=== PATIENT | female | born 1970 | race Caucasian/White ===

== ENCOUNTER → 2019-03-13 | Outpatient (CLI) | payer OTHER, BC ==
[~2019-03-13] MED LIST: BARIUM for suspension 96% w/w (Vanilla Silq Medium Density) PO ONE; BARIUM for suspension 98% w/w (Vanilla Silq High Density) PO ONE
--- NOTE | 2019-03-13 11:51 | Diagnostic Imaging Report ---
INDICATION: Reflux. TECHNIQUE: Patient ingested effervescent crystals as well as thin and thick barium and imaging over the esophagus, stomach, and proximal small bowel was performed. Total of 1 minute and 5 seconds of fluoroscopic time was utilized. FINDINGS: Preliminary radiograph of the abdomen is unremarkable. The esophagus has a smooth contour. No mass or stricture is identified. No significant hiatal hernia or gastroesophageal reflux was demonstrated. Stomach has a normal configuration. There is prompt emptying into the small bowel. Duodenal bulb is without deformity. IMPRESSION: Unremarkable upper GI. Dictated by: Dictated on workstation # [id number]
== END ==
LOC: RAD 10:42
PROVIDERS: ATTEND Surgery
DX: K21.9 Gastro-esophageal reflux disease without esophagitis (principal)
CPT/HCPCS: 74246

== ENCOUNTER 2019-10-26 05:37 | Outpatient (CLI) | payer BC, OTHER ==
[~2019-10-26] VITALS: Ht 157 cm; Wt 100.9 kg
[2019-10-26] MEDS ORDERED: PEDI18TA2 PO (11:30)
[2019-10-26] MEDS ORDERED: BUPR150T9 PO (11:30)
[2019-10-26] MEDS ORDERED: PHEN-483 PO (11:30)
[2019-10-26] MEDS ORDERED: CETI10TA17 PO (11:31)
[2019-11-02] MEDS ORDERED: ONDN4T PO (12:57)
[2019-11-02] MEDS ORDERED: HYDR-3817 PO (12:57)
[2019-11-02] MEDS ORDERED: PANT40TA2 PO (12:57)
== END 2019-10-26 11:51 | disposition home or self-care (01) ==
LOC: PREOP 05:37
PROVIDERS: ATTEND Surgery
DX: Z01.818 Encounter for other preprocedural examination (principal)

== ENCOUNTER 2019-11-02 18:11 | Observation (INO) | payer BC, OTHER ==
[2019-11-02] VITALS (11 sets, daily range): BP systolic 124–166; BP diastolic 72–101
[~2019-11-02] VITALS: Ht 157 cm; Wt 100.9 kg
[2019-11-02] MEDS: LACTATED RINGERS 1,000 ML IV PRN ×2 (12:47→16:15)
--- NOTE | 2019-11-02 12:53 | Progress Note-Pre Operative ---
Pre-Operative Progress Note H&P Reviewed The H&P was reviewed, patient examined and no changes noted. Date Seen by Provider: Nov 02, 2019 Time Seen by Provider: 12:50 Date H&P Reviewed: Nov 02, 2019 Time H&P Reviewed: 12:50 Pre-Operative Diagnosis: morbid obesity, sleep apnea GIANNI FREEDMAN MD Nov 02, 2019 12:53
[2019-11-02 12:57] LABS: BASOPHILS % (AUTO) 0 % (0-10); EOSINOPHILS # (AUTO) 0.1 10^3/uL (0.0-0.3); EOSINOPHILS % (AUTO) 1 % (0-10); HEMATOCRIT 40 % (35-52); LYMPHOCYTES # (AUTO) 2.6 X 10^3 (1.0-4.0); LYMPHOCYTES % (AUTO) 33 % (12-44); MEAN CORPUSCULAR HEMOGLOBIN 30 PG (25-34); MEAN CORPUSCULAR HGB CONC 35 G/DL (32-36); MEAN CORPUSCULAR VOLUME 87 FL (80-99); MONOCYTES # (AUTO) 0.5 X 10^3 (0.0-1.0); MONOCYTES % (AUTO) 7 % (0-12); NEUTROPHILS # (AUTO) 4.7 X 10^3 (1.8-7.8); NEUTROPHILS % (AUTO) 59 % (42-75); PLATELET COUNT 254 10^3/uL (130-400); WHITE BLOOD COUNT 7.9 10^3/uL (4.3-11.0)
--- NOTE | 2019-11-02 12:58 | Discharge Inst-Surgical ---
D/C Lap Instructions-JASMINA Follow Up Appt in 2 weeks Activity as tolerated No driving for 24 hours No driving while on pain medications Incentive Spirometry use every 2 hours while awake Phase 1 clear liquid diet next 2 weeks. Symptoms to Report: Fever over 101 degree F, Nausea/Vomiting Infection Signs and Symptoms to report: Increased redness, Foul odor of wound, Increased drainage Bathing instructions: May shower Operative Area Clean/Dry; Keep incision clean/dry If any problems/questions: Contact your physician or go to Emergency Room GIANNI FREEDMAN MD Nov 02, 2019 12:58
--- NOTE | 2019-11-02 16:33 | Progress Note-Post Operative ---
Post-Operative Progess Note Surgeon (s)/Cardiovascular Lab Director (s) Surgeon GIANNI FREEDMAN MD Cardiovascular Lab Director: jesse kumar APRN Pre-Operative Diagnosis morbid obesity, sleep apnea Post-Operative Diagnosis same Procedure & Operative Findings Date of Procedure 11/02/19 Procedure Performed/Findings laparoscopic gastric sleeve resection. Anesthesia Type get Estimated Blood Loss Estimated blood loss (mL): minimal Specimens/Packing Specimens Removed stomach GIANNI FREEDMAN MD Nov 02, 2019 16:33
--- NOTE | 2019-11-02 17:10 | Diagnostic Imaging Report ---
INDICATION: Incorrect needle count. EXAMINATION: Abdomen, 11/02/2019. FINDINGS: Two views of the abdomen. There is no radiopaque foreign body within the visualized aspects of the abdomen. IMPRESSION: No radiopaque foreign body. Dictated by: Dictated on workstation # [id number]
[~2019-11-02 18:11] MED LIST changes: +1/2 NS W/KCL 20 MEQ/L 1,000 ML IV SCH; -BARIUM for suspension 96% w/w (Vanilla Silq Medium Density) PO ONE; -BARIUM for suspension 98% w/w (Vanilla Silq High Density) PO ONE; +BUP/EPI 0.25% 1:200,000 (MARCAINE) 30 ML VIAL ONE; +BUPR150T9 PO; +CATHETER FLUSH 10 ML SYR IV PRN; +CETI10TA17 PO; +CLINDAMYCIN 600 MG/50 ML IVPB 50 ML IV ONE; +FAMOTIDINE 20MG/2ML IV (PEPCID) IV ONE; +GLYCOPYRROLATE 0.2 MG/ML (ROBINUL) 2 ML VIAL ONE; +HYDR-3817 PO; +HYDROmorphone 2 MG/ML VIAL (DILAUDID) IV ONE; +HYDROmorphone 2 MG/ML VIAL (DILAUDID) ONE; +LIDOCAINE PF 2% 5 ML (XYLOCAINE) VIAL ONE; +METOCLOPRAMIDE INJ 10 MG/2 ML (REGLAN) IV PRN; +METOCLOPRAMIDE INJ 10 MG/2 ML (REGLAN) IVP SCH; +MIDAZOLAM 2 MG/2 ML (VERSED) VIAL ONE; +NALOXONE 0.4 MG/ML 1 ML (NARCAN) VIAL IV PRN; +NEOSTIGMINE 3 MG/3 ML VIAL ONE; +NS IV 1000 ML 1,000 ML IV SCH; +ONDANSETRON 4 MG/2 ML (SDV) Z0FRAN IV ONE; +ONDANSETRON 4 MG/2 ML (SDV) Z0FRAN IV PRN; +ONDANSETRON 4 MG/2 ML (SDV) Z0FRAN IVP PRN; +ONDANSETRON 4 MG/2 ML (SDV) Z0FRAN IVP SCH; +ONDANSETRON 4 MG/2 ML (SDV) Z0FRAN ONE; +ONDN4T PO; +PANT40TA2 PO; +PEDI18TA2 PO; +PHEN-483 PO; +ROCURONIUM 10 MG/ML 5 ML SYRINGE IV ONE; +RT-ALBUTEROL SULF 2.5 MG/3 ML PRE-MIX VIAL INH SCH; +RT-ALBUTEROL SULF 2.5 MG/3 ML PRE-MIX VIAL ONE; +SEVOFLURANE (ULTANE) 15 ML INHAL SOLN ONE; +ceFAZolin 2 GM IV Premixed 50 ML IV SCH; +diphenhydrAMINE 50 MG/ML INJ (BENADRYL) IV PRN; +diphenhydrAMINE 50 MG/ML INJ (BENADRYL) IVP PRN; +fentaNYL INJECTION 1,000 MCG in NS (IVPB) 80 ML IV SCH; +fentaNYL INJECTION 100 MCG/2 ML AMP ONE; +metroNIDAZOLE 500MG/100ML IVPB 100 ML IV SCH; +morphine INJ 10 MG/ML 1ML (SYR OR VIAL) IVP ONE; +morphine INJ 10 MG/ML 1ML (SYR OR VIAL) ONE; +oxyCODONE 5 MG/5 ML ORAL SOLN (roxiCODONE) 5 ML UDC PO PRN; +proPOfol 200 MG/20 ML (DIPRIVAN) VIAL IV ONE
[2019-11-02] MEDS: 1/2 NS W/KCL 20 MEQ/L 1,000 ML IV SCH (19:53)
[2019-11-02] MEDS: ENOXAPARIN 40 MG/0.4 ML (LOVENOX) SYR SC SCH (20:43)
[2019-11-02] MEDS ORDERED: ENOXAPARIN 30 MG/0.3 ML (LOVENOX) SYR SC SCH (21:00)
[2019-11-02] MEDS: RT-ALBUTEROL SULF 2.5 MG/3 ML PRE-MIX VIAL INH SCH (21:43)
[2019-11-02] MEDS: ONDANSETRON 4 MG/2 ML (SDV) Z0FRAN IVP SCH (23:17)
[2019-11-02] MEDS: METOCLOPRAMIDE INJ 10 MG/2 ML (REGLAN) IVP SCH (23:18)
[2019-11-03] VITALS: BP 159/92
[2019-11-03] MEDS: RT-ALBUTEROL SULF 2.5 MG/3 ML PRE-MIX VIAL INH SCH ×7 (02:43→22:44)
--- NOTE | 2019-11-03 03:10 | OPERATIVE REPORT ---
DATE OF SERVICE: 11/02/2019 ATTENDING PRIMARY CARE PHYSICIAN: Dr. Jesús Luna PREOPERATIVE DIAGNOSES: 1. Morbid obesity. 2. Sleep apnea. 3. Gastroesophageal reflux disease. POSTOPERATIVE DIAGNOSES: 1. Morbid obesity. 2. Sleep apnea. 3. Gastroesophageal reflux disease. PROCEDURE: Laparoscopic gastric sleeve resection. SURGEON: Gianni Freedman MD GREASER AND OILER: Hansel rBown APRN ANESTHESIA: General endotracheal. ESTIMATED BLOOD LOSS: Minimal. FINDINGS: Surgically absent gallbladder. No hiatal hernia. DISPOSITION: The patient tolerated the procedure well. INDICATIONS: The patient is a 49-year-old female with morbid obesity and in a surgical weight loss program for the gastric sleeve resection and meets the medical criteria for bariatric surgery. She began to gain the majority of her adult weight after her first child approximately 20 years ago. Since that time, she has tried numerous diet and exercise attempts with no success. She has tried diet programs including high protein, low carbohydrate diets, Atkins diet, Venus and ketogenic diet as well as low-caloric diet with some success; however, would regain the weight back. She has also tried diet, exercise regimens including running, walking, elliptical agency trainer, stationary bike, resistance weight training and has little success with this. She has also tried numerous rounds of phentermine and would lose weight; however, after stopping the medication would regain the weight back. Her medical comorbidities related to her obesity include obstructive sleep apnea, depression and gastroesophageal reflux disease. DESCRIPTION OF PROCEDURE: The patient was brought to the operating room, laid supine on the table. After adequate IV pain and sedative medications and general endotracheal intubation, the abdomen was prepped and draped in standard surgical fashion. A 0.5% Marcaine with epinephrine was then used to anesthetize the overlying skin in the left upper abdominal quadrant and a transverse skin incision made using a 15 blade. An 0 silk suture was applied to the medial aspect incision for retraction and a Veress needle inserted with a low opening pressure of 0 mmHg. The abdomen was then insufflated to 15 mmHg pressure. The Veress needle removed and a 5 mm XL trocar placed followed by a 5 mm 45-degree angle laparoscope visualizing the peritoneal cavity. A 4-quadrant abdominal exploration was performed. There was no liver steatosis, surgically absent gallbladder. No hiatal hernia. Under direct visualization, we then proceeded to place a supraumbilical 10 mm port after the skin and peritoneal lining were anesthetized using 0.5% Marcaine with epinephrine and a transverse skin incision made using a 15 blade. In a similar manner, a midabdominal right of midline 15 mm port as well as a right upper abdominal quadrant 5 mm port. The epigastric region was then anesthetized using 0.5% Marcaine and a transverse skin incision made using 11 blade. A tract was then created through the abdominal wall layers using a trocar to a 5 mm port and through this opening, a medium sized Nathansen liver retractor was placed and the left lobe of the liver retracted anteriorly and superiorly. The patient was then placed in steep reverse Trendelenburg position. We then measured 6 cm from the pylorus along the greater curvature and marked this area with a marking pen. The gastrocolic ligament next to the stomach was then opened entering the lesser sac using the Sonicision. We then proceeded with inferior dissection until we were approximately 2 cm below our marking using the Sonicision with visualization of good hemostasis. We then proceeded superiorly, taking down the short gastric vessels as well as the angle of His, connective tissue fibers and also identifying the left albina of the diaphragm. A ViSiGi 36-Macedonian tube was then placed into the stomach and directed into the pylorus under direct visualization. Using this as our staple line guide, we then proceeded with our gastric sleeve resection. We first started with a 45 mm polyglycolic acid black load approximately 2 cm below our marking. We then proceeded with 60 mm black load followed by two 60 mm purple loads leaving approximately 2 cm next to the gastroesophageal junction and completing our gastric sleeve resection. The staple line corners were then clipped with 5 mm clips. Tisseel fibrin glue was then placed onto the staple line and omentum placed onto the staple line. Before this, a leak test was performed and the pylorus was occluded and 30 mmHg of air were insufflated into the stomach with no leak identified. The stomach was removed through the 15 mm port site. The fascia and peritoneum to the 10 and 15 mm port site were then closed under direct visualization using a David-Liv device and 0 Vicryl suture. The abdomen was desufflated and the remaining ports removed. All skin incisions were closed using 4-0 Monocryl running subcuticular sutures. Wounds were then cleaned and covered with Dermabond. The patient tolerated the procedure well. We will admit her 23-hour observation and proceed with pain control with a VIDEO CONTROL OPERATOR pump. We will also proceed with DVT prophylaxis with early ambulation, calf SCDs as well as Lovenox injections. Tomorrow morning, we will start a phase 1 clear liquid diet and when she is tolerating 60 mL of clear liquid, had adequate pain control with oral pain medications, is ambulating well, we will discharge her home. She will be instructed to do no heavy lifting or exertion for the next two weeks as well. Job ID: [id number] DocumentID: [id number] Dictated Date: 11/02/2019 16:45:54 Pleater Date: 11/03/2019 03:09:37 Dictated By: GIANNI FREEDMAN MD MTDD
[2019-11-03] MEDS: 1/2 NS W/KCL 20 MEQ/L 1,000 ML IV SCH ×2 (03:28→11:30)
[2019-11-03] MEDS: ceFAZolin 2 GM IV Premixed 50 ML IV SCH ×2 (03:28→12:23)
[2019-11-03 04:00] VITALS: BP 142/85
[2019-11-03] MEDS: METOCLOPRAMIDE INJ 10 MG/2 ML (REGLAN) IVP SCH ×2 (04:39→12:23)
[2019-11-03] MEDS: metroNIDAZOLE 500MG/100ML IVPB 100 ML IV SCH ×2 (04:39→12:30)
[2019-11-03] MEDS: ONDANSETRON 4 MG/2 ML (SDV) Z0FRAN IVP SCH ×2 (04:39→11:20)
[2019-11-03 06:30] LABS: HEMOGLOBIN 14.4 G/DL (11.5-16.0); MEAN PLATELET VOLUME 11.3 FL (7.4-10.4); WHITE BLOOD COUNT 12.3 10^3/uL (4.3-11.0)
[2019-11-03 06:40] LABS: CHLORIDE 100 MMOL/L (98-107)
[2019-11-03 06:41] LABS: POTASSIUM 3.9 MMOL/L (3.6-5.0); SODIUM 131 MMOL/L (135-145)
[2019-11-03 06:42] LABS: GLUCOSE 133 MG/DL (70-105)
[2019-11-03 06:44] LABS: CARBON DIOXIDE 17 MMOL/L (21-32)
[2019-11-03 06:46] LABS: CREATININE SERUM 0.78 MG/DL (0.60-1.30); GFR ESTIMATED > 60
[2019-11-03 06:47] LABS: BUN/CREATININE RATIO 6
[2019-11-03 08:00] VITALS: BP 155/86
[2019-11-03] MEDS ORDERED: SENNA W/DOCUSATE (SENOKOT S) TABLET PO SCH (09:00)
[2019-11-03] MEDS: ENOXAPARIN 40 MG/0.4 ML (LOVENOX) SYR SC SCH ×2 (09:48→19:36)
[2019-11-03] MEDS: SENNA W/DOCUSATE (SENOKOT S) TABLET PO SCH (09:49)
[2019-11-03] MEDS: ONDANSETRON 4 MG/2 ML (SDV) Z0FRAN IVP PRN ×2 (09:49→17:38)
[2019-11-03 12:00] VITALS: BP 114/70
[2019-11-03] MEDS ORDERED: PROMETHAZINE INJ 25 MG/ML (PHENERGAN) AMP IVP PRN (12:15)
--- NOTE | 2019-11-03 12:59 | Progress Note ---
Subjective Date Seen by a Provider: Nov 03, 2019 Time Seen by a Provider: 12:00 Subjective/Events-last exam Patient lying in bed resting. Patient reports having abdominal pain especially in the epigastric region. She reports that she has tried some ice chips however continues to have nausea and vomiting and has not been able to tolerate much. Denies any fever or chills. Reports that she has been ambulating to the bathroom only. Objective Exam Vital Signs Date Time Temp Pulse Resp B/P (MAP) Pulse Ox O2 Delivery O2 Flow Rate FiO2 11/03/19 12:00 36.0 97 16 114/70 (85) 99 Room Air 11/03/19 09:00 99 Room Air 11/03/19 08:00 35.4 90 22 155/86 (109) 98 Room Air 11/03/19 07:00 18 11/03/19 04:00 37.0 85 18 142/85 (104) 99 Room Air 11/03/19 00:00 36.0 87 18 159/92 (114) 99 Room Air 11/02/19 21:43 95 Room Air 11/02/19 21:00 15 11/02/19 21:00 Room Air 11/02/19 20:00 36.5 101 20 153/96 (115) 99 Nasal Cannula 0.50 11/02/19 19:11 Room Air 11/02/19 18:46 36.6 93 18 160/101 (120) 94 Room Air 11/02/19 18:00 36.2 14 159/99 (119) 95 Room Air 11/02/19 18:00 Room Air 11/02/19 17:50 14 160/96 (117) 99 OxyMask 2 11/02/19 17:50 OxyMask 2 11/02/19 17:40 OxyMask 4 11/02/19 17:40 14 165/97 (119) 100 OxyMask 3 11/02/19 17:30 15 166/98 (120) 100 OxyMask 4 11/02/19 17:30 OxyMask 6 11/02/19 17:20 OxyMask 8 11/02/19 17:20 14 155/99 (117) 100 OxyMask 6 11/02/19 17:10 16 156/99 (118) 100 OxyMask 8 11/02/19 17:06 OxyMask 10 11/02/19 17:06 36.1 17 144/94 (111) 100 OxyMask 10 11/02/19 14:09 37.3 94 18 124/72 99 Room Air I & O 11/03/19 07:00 Intake Total 3250 ml Output Total 2850 ml Balance 400 ml Capillary Refill : Less Than 3 Seconds General Appearance: No Apparent Distress, WD/WN Neck: Normal Inspection, Supple Respiratory: Normal Breath Sounds, No Accessory Muscle Use, No Respiratory Distress Cardiovascular: Regular Rate, Rhythm, No Edema Gastrointestinal: normal bowel sounds, soft, tenderness Extremity: Normal Inspection, Normal Range of Motion Neurologic/Psychiatric: Alert, Oriented x3 Skin: Normal Color, Warm/Dry, Other (Lap abdominal incisions C/D/I) Results Lab Laboratory Tests 11/03/19 06:17: White Blood Count 12.3H, Red Blood Count 4.92, Hemoglobin 14.4, Hematocrit 42, Mean Corpuscular Volume 86, Mean Corpuscular Hemoglobin 29, Mean Corpuscular Hemoglobin Concent 34, Red Cell Distribution Width 12.5, Platelet Count 244, Mean Platelet Volume 11.3H, Sodium Level 131L, Potassium Level 3.9, Chloride Level 100, Carbon Dioxide Level 17L, Anion Gap 14, Blood Urea Nitrogen 5L, Creatinine 0.78, Estimat Glomerular Filtration Rate > 60, BUN/Creatinine Ratio 6, Glucose Level 133H, Calcium Level 9.0 Microbiology 11/02/19 MRSA Screen - Final, Complete MRSA not isolated Assessment/Plan Assessment/Plan Assess & Plan/Chief Complaint A 49 year old female with morbid obesity, sleep apnea, who is S/P laparoscopic gastric sleeve resection VSS Patient unable to tolerate liquids Will continue IV fluids, pain medication - preferably oral pain meds if can tolerate, and nausea medication - will add phenergan Encourage ambulation and IS Will continue to encourage clear liquids as tolerated Labs in AM Clinical Quality Measures DVT/VTE Risk/Contraindication: Risk Factor Score Per Nursin RFS Level Per Nursing on Admit: 2=Moderate RICHARD FORD PICK OUT HAND Nov 03, 2019 12:59
[2019-11-03] MEDS ORDERED: METOCLOPRAMIDE INJ 10 MG/2 ML (REGLAN) IVP PRN ×2 (13:00)
[2019-11-03] MEDS ORDERED: ONDANSETRON 4 MG/2 ML (SDV) Z0FRAN IVP PRN (13:00)
--- NOTE | 2019-11-03 13:44 | Anesthesia-General Post-Op ---
General Patient Condition Mental Status/LOC: Same as Preop Cardiovascular: Satisfactory Nausea/Vomiting: Absent Respiratory: Satisfactory Pain: Controlled Complications: Absent Post Op Complications Complications None Follow Up Care/Instructions Patient Instructions None needed. Anesthesia/Patient Condition Patient Condition Patient is doing well, no complaints, stable vital signs, no apparent adverse anesthesia problems. No complications reported per nursing. D/C home per [facility] Criteria: Yes MITUL HARO CRNA Nov 03, 2019 13:44
[2019-11-03 16:00] VITALS: BP 159/85
--- NOTE | 2019-11-03 17:25 | NUR ---
80mL of IV fentanyl wasted from CADD pump at this time. Witnessed by DAMASO Osuna.
[2019-11-03] MEDS ORDERED: PANTOPRAZOLE 40 MG (PROTONIX) VIAL IV ONE (19:30)
[2019-11-03] MEDS ORDERED: PANTOPRAZOLE 40 MG (PROTONIX) VIAL ONE (19:30)
--- NOTE | 2019-11-03 19:50 | NUR ---
PT. REQUESTING MEDICATION FOR HEART BURN JEAN PAUL NOTIFIED, NEW ORDERS RECEIVED: PROTONIX 40MG IV DAILY
[2019-11-03 20:00] VITALS: BP 159/90
[2019-11-04 00:12] VITALS: BP 150/88
[2019-11-04] MEDS: 1/2 NS W/KCL 20 MEQ/L 1,000 ML IV SCH ×3 (01:04→06:26)
[2019-11-04] MEDS: RT-ALBUTEROL SULF 2.5 MG/3 ML PRE-MIX VIAL INH SCH ×2 (02:10→07:28)
[2019-11-04 04:00] VITALS: BP 163/90
[2019-11-04 06:19] LABS: BASOPHILS % (AUTO) 0 % (0-10); EOSINOPHILS % (AUTO) 0 % (0-10); HEMATOCRIT 45 % (35-52); HEMOGLOBIN 16.1 G/DL (11.5-16.0); LYMPHOCYTES # (AUTO) 1.5 X 10^3 (1.0-4.0); LYMPHOCYTES % (AUTO) 11 % (12-44); MEAN CORPUSCULAR HEMOGLOBIN 30 PG (25-34); MEAN CORPUSCULAR HGB CONC 36 G/DL (32-36); MEAN CORPUSCULAR VOLUME 83 FL (80-99); MONOCYTES # (AUTO) 0.9 X 10^3 (0.0-1.0); MONOCYTES % (AUTO) 7 % (0-12); NEUTROPHILS # (AUTO) 11.3 X 10^3 (1.8-7.8); NEUTROPHILS % (AUTO) 82 % (42-75); PLATELET COUNT 242 10^3/uL (130-400); WHITE BLOOD COUNT 13.7 10^3/uL (4.3-11.0)
[2019-11-04 06:37] LABS: ALBUMIN 4.4 GM/DL (3.2-4.5); CHLORIDE 93 MMOL/L (98-107); POTASSIUM 3.6 MMOL/L (3.6-5.0); SODIUM 127 MMOL/L (135-145)
[2019-11-04 06:38] LABS: CALCIUM 9.5 MG/DL (8.5-10.1)
[2019-11-04 06:39] LABS: GLUCOSE 127 MG/DL (70-105); TOTAL PROTEIN 7.7 GM/DL (6.4-8.2)
[2019-11-04 06:41] LABS: BILIRUBIN,TOTAL 1.1 MG/DL (0.1-1.0); CARBON DIOXIDE 18 MMOL/L (21-32)
[2019-11-04 06:43] LABS: ALKALINE PHOSPHATASE 133 U/L (40-136); CREATININE SERUM 0.75 MG/DL (0.60-1.30); GFR ESTIMATED > 60
[2019-11-04 06:44] LABS: BUN/CREATININE RATIO 7
[2019-11-04 06:46] LABS: ALANINE AMINOTRANSFERASE 92 U/L (0-55)
[2019-11-04 08:00] VITALS: BP 143/88
--- NOTE | 2019-11-04 08:03 | Progress Note ---
Subjective Date Seen by a Provider: Nov 04, 2019 Time Seen by a Provider: 07:50 Subjective/Events-last exam Patient lying in bed resting. Reports doing much better today. Nausea and vomiting improved. Minimal abdominal discomfort. Tolerating liquids. Heartburn controlled with medication. Objective Exam Vital Signs Date Time Temp Pulse Resp B/P (MAP) Pulse Ox O2 Delivery O2 Flow Rate FiO2 11/04/19 04:00 36.6 104 18 163/90 (114) 99 Room Air 11/04/19 00:12 37.0 98 18 150/88 (108) 99 Room Air 11/03/19 21:44 Room Air 11/03/19 20:00 36.8 83 18 159/90 (113) 100 Room Air 11/03/19 16:00 36.0 82 18 159/85 (109) 99 Room Air 11/03/19 12:00 36.0 97 16 114/70 (85) 99 Room Air 11/03/19 09:00 99 Room Air 11/03/19 08:00 35.4 90 22 155/86 (109) 98 Room Air I & O 11/04/19 07:00 Intake Total 1360 ml Balance 1360 ml Capillary Refill : Less Than 3 Seconds General Appearance: No Apparent Distress, WD/WN Neck: Normal Inspection, Supple Respiratory: Normal Breath Sounds, No Accessory Muscle Use, No Respiratory Distress Cardiovascular: Regular Rate, Rhythm, No Edema Gastrointestinal: normal bowel sounds, soft, tenderness Extremity: Normal Inspection, Normal Range of Motion Neurologic/Psychiatric: Alert, Oriented x3 Skin: Normal Color, Warm/Dry, Other (Lap abdominal incisions C/D/I) Results Lab Laboratory Tests 11/04/19 05:26: White Blood Count 13.7H, Red Blood Count 5.42, Hemoglobin 16.1H, Hematocrit 45, Mean Corpuscular Volume 83, Mean Corpuscular Hemoglobin 30, Mean Corpuscular Hemoglobin Concent 36, Red Cell Distribution Width 12.8, Platelet Count 242, Mean Platelet Volume 12.0H, Neutrophils (%) (Auto) 82H, Lymphocytes (%) (Auto) 11L, Monocytes (%) (Auto) 7, Eosinophils (%) (Auto) 0, Basophils (%) (Auto) 0, Neutrophils # (Auto) 11.3H, Lymphocytes # (Auto) 1.5, Monocytes # (Auto) 0.9, Eosinophils # (Auto) 0.0, Basophils # (Auto) 0.0, Sodium Level 127L, Potassium Level 3.6, Chloride Level 93L, Carbon Dioxide Level 18L, Anion Gap 16H, Blood Urea Nitrogen 5L, Creatinine 0.75, Estimat Glomerular Filtration Rate > 60, BUN/Creatinine Ratio 7, Glucose Level 127H, Calcium Level 9.5, Corrected Calcium 9.2, Total Bilirubin 1.1H, Aspartate Amino Transf (AST/SGOT) 39H, Alanine Aminotransferase (ALT/SGPT) 92H, Alkaline Phosphatase 133, Total Protein 7.7, Albumin 4.4 Microbiology 11/02/19 MRSA Screen - Final, Complete MRSA not isolated Assessment/Plan Assessment/Plan Assess & Plan/Chief Complaint A 49 year old female with morbid obesity, sleep apnea, who is S/P laparoscopic gastric sleeve resection VSS Patient tolerating liquids now Pain, nausea, and vomiting much better than yesterday Encourage ambulation and IS Ok to DC home Clinical Quality Measures DVT/VTE Risk/Contraindication: Risk Factor Score Per Nursin RFS Level Per Nursing on Admit: 2=Moderate RICHARD FORD CRUSHER ASSEMBLER Nov 04, 2019 08:03
--- NOTE | 2019-11-04 08:25 | NUR ---
ZOFRAN 4MG IV FOR NAUSEA.
[2019-11-04] MEDS: SENNA W/DOCUSATE (SENOKOT S) TABLET PO SCH (08:28)
[2019-11-04] MEDS: ENOXAPARIN 40 MG/0.4 ML (LOVENOX) SYR SC SCH (08:28)
[2019-11-04] MEDS: ONDANSETRON 4 MG/2 ML (SDV) Z0FRAN IVP PRN (08:28)
[2019-11-04] MEDS ORDERED: PANTOPRAZOLE 40 MG (PROTONIX) VIAL IV SCH (09:00)
[2019-11-04] MEDS ORDERED: PHENERGAN (10:00)
--- NOTE | 2019-11-04 10:15 | NUR ---
RX AND INST AND VERBALIZED UNDERSTANDING. DC'D PER WC TO HOME.
== END 2019-11-04 10:15 | disposition home or self-care (01) ==
LOC: 4TH 18:11 → SDC 18:11 → 4TH 11-03 12:59
PROVIDERS: ADMIT Surgery; ATTEND Surgery
DX: E66.01 Morbid (severe) obesity due to excess calories (principal); K21.9 Gastro-esophageal reflux disease without esophagitis; I10 Essential (primary) hypertension; G47.33 Obstructive sleep apnea (adult) (pediatric); G43.909 Migraine, unspecified, not intractable, without status migrainosus; F32.9 Major depressive disorder, single episode, unspecified; G89.29 Other chronic pain; M54.9 Dorsalgia, unspecified; Z68.41 Body mass index [BMI] 40.0-44.9, adult; Z79.899 Other long term (current) drug therapy; Z88.0 Allergy status to penicillin; Z88.5 Allergy status to narcotic agent; Z88.7 Allergy status to serum and vaccine; Z88.1 Allergy status to other antibiotic agents; Z88.8 Allergy status to other drugs, medicaments and biological substances
CPT/HCPCS: 36415; 74018; 80048; 80053; 84703; 85025; 85027; 87081; 94640; 94664; 94760

== ENCOUNTER 2019-11-11 11:23 | Emergency (ER) | payer BC ==
[~2019-11-11] VITALS: Ht 157 cm; Wt 90.7 kg
[~2019-11-11 11:23] MED LIST changes: -1/2 NS W/KCL 20 MEQ/L 1,000 ML IV SCH; -BUP/EPI 0.25% 1:200,000 (MARCAINE) 30 ML VIAL ONE; -CATHETER FLUSH 10 ML SYR IV PRN; -CLINDAMYCIN 600 MG/50 ML IVPB 50 ML IV ONE; -FAMOTIDINE 20MG/2ML IV (PEPCID) IV ONE; -GLYCOPYRROLATE 0.2 MG/ML (ROBINUL) 2 ML VIAL ONE; -HYDROmorphone 2 MG/ML VIAL (DILAUDID) IV ONE; -HYDROmorphone 2 MG/ML VIAL (DILAUDID) ONE; -LIDOCAINE PF 2% 5 ML (XYLOCAINE) VIAL ONE; -METOCLOPRAMIDE INJ 10 MG/2 ML (REGLAN) IV PRN; -METOCLOPRAMIDE INJ 10 MG/2 ML (REGLAN) IVP SCH; -MIDAZOLAM 2 MG/2 ML (VERSED) VIAL ONE; -NALOXONE 0.4 MG/ML 1 ML (NARCAN) VIAL IV PRN; -NEOSTIGMINE 3 MG/3 ML VIAL ONE; -NS IV 1000 ML 1,000 ML IV SCH; -ONDANSETRON 4 MG/2 ML (SDV) Z0FRAN IV ONE; -ONDANSETRON 4 MG/2 ML (SDV) Z0FRAN IV PRN; -ONDANSETRON 4 MG/2 ML (SDV) Z0FRAN IVP PRN; -ONDANSETRON 4 MG/2 ML (SDV) Z0FRAN IVP SCH; -ONDANSETRON 4 MG/2 ML (SDV) Z0FRAN ONE; +PHENERGAN; -ROCURONIUM 10 MG/ML 5 ML SYRINGE IV ONE; -RT-ALBUTEROL SULF 2.5 MG/3 ML PRE-MIX VIAL INH SCH; -RT-ALBUTEROL SULF 2.5 MG/3 ML PRE-MIX VIAL ONE; -SEVOFLURANE (ULTANE) 15 ML INHAL SOLN ONE; -ceFAZolin 2 GM IV Premixed 50 ML IV SCH; -diphenhydrAMINE 50 MG/ML INJ (BENADRYL) IV PRN; -diphenhydrAMINE 50 MG/ML INJ (BENADRYL) IVP PRN; -fentaNYL INJECTION 1,000 MCG in NS (IVPB) 80 ML IV SCH; -fentaNYL INJECTION 100 MCG/2 ML AMP ONE; -metroNIDAZOLE 500MG/100ML IVPB 100 ML IV SCH; -morphine INJ 10 MG/ML 1ML (SYR OR VIAL) IVP ONE; -morphine INJ 10 MG/ML 1ML (SYR OR VIAL) ONE; -oxyCODONE 5 MG/5 ML ORAL SOLN (roxiCODONE) 5 ML UDC PO PRN; -proPOfol 200 MG/20 ML (DIPRIVAN) VIAL IV ONE
[2019-11-11 11:25] VITALS: BP 133/87
--- NOTE | 2019-11-11 11:49 | ED GI ---
General Chief Complaint: Abdominal/GI Problems Stated Complaint: BLACK STOOL Nursing Triage Note: ARRIVED VIA AMB TO ROOM 07 WITH COMPLAINTS OF X1 BLACK STOOL THIS AM. ALSO NOTICED STOME GREEN DRAINAGE UNDER AN INCISION SITE. GASTRIC SLEEVE BY JASMINA ON Oct. PT STATES SHE TAKES A FLINTSTONES IRON BID AND THIS WAS HER FIRST STOOL SINCE SURGERY. Sepsis Screen: No Definite Risk Source of Information: Patient Exam Limitations: No Limitations History of Present Illness Date Seen by Provider: Nov 11, 2019 Time Seen by Provider: 11:32 Initial Comments 49yo female with complaints of wound drainage to surgical site as well as black stool this morning. Patient had gastric sleeve surgery by Dr Welch on . Has not had a bowel movement since prior to surgery. She states she had her first bm around 7am today that was "black". No significantly associated abdominal pain, Although she does report mild right upper quadrant "sharp" discomfort as well as "growly" LLQ discomfort. She is also concerned for the right mid laparoscopy site with greenish drainage under the tissue adhesive bandage. no significant pain at this site. No other complaints of illness or injury. Timing/Duration: 4-6 Hours Severity/Quality: Mild Location: RUQ, LLQ Radiation: No Radiation Activities at Onset: None Associated Symptoms: Other (Black stool) Allergies and Home Medications Allergies Coded Allergies: Tetanus Vaccines and Toxoid (Verified Allergy, Severe, SEVERE SWELLING AT INJECTION SITE, 11/02/19) cyclobenzaprine (Verified Allergy, Severe, ANAPHYLAXIS , 11/02/19) erythromycin base (Verified Allergy, Severe, CHEST PAIN, 11/02/19) Home Medications Bupropion HCl 150 Mg Tablet.er, 150 MG PO BID, (Reported) Cetirizine HCl 10 Mg Tablet, 10 MG PO DAILY, (Reported) Hydrocodone/Acetaminophen 1 Each Tablet, 1 EACH PO Q4H Prescribed by: GIANNI WELCH on 11/02/19 1257 Ondansetron HCl 4 Mg Tab, 4 MG PO Q4H Prescribed by: GIANNI WELCH on 11/02/19 1257 Pantoprazole Sodium 40 Mg Tablet.dr, 40 MG PO DAILY Prescribed by: GIANNI WELCH on 11/02/19 1257 Pedi Mv No.79/Ferrous Fumarate 18 Mg Tab.chew, 18 MG PO DAILY, (Reported) [Phenergan] , 25 MG EVERY 4-6 HOURS DIRECTED ON RX Prescribed by: MARI SEGURA on 11/04/19 1000 Patient Home Medication List Home Medication List Reviewed: Yes Review of Systems Review of Systems Constitutional: no symptoms reported Respiratory: Cough (Occasional mild) Cardiovascular: No Symptoms Reported Gastrointestinal: Abdominal Pain (Mild), Constipated, Other (Black stool) Genitourinary: No Symptoms Reported Musculoskeletal: no symptoms reported Skin: other (Possible infection laparoscopic site) Past Zffytmk-Zlbfqf-Lpnvna Hx Patient Social History Alcohol Use: Denies Use Recreational Drug Use: No Smoking Status: Never a Smoker 2nd Hand Smoke Exposure: No Recent Foreign Travel: No Contact w/Someone Who Travel: No Recent Infectious Disease Expo: No Recent Hopitalizations: No Seasonal Allergies Seasonal Allergies: Yes Past Medical History Surgeries: Yes (CX X3) Section, Tonsillectomy Respiratory: Yes Sleep Apnea Currently Using CPAP: Yes Currently Using BIPAP: No Cardiac: No Neurological: Yes Headaches /Migraines Female Reproductive Disorders: Menstrual Problems Sexually Transmitted Disease: No HIV/AIDS: No Genitourinary: No Gastrointestinal: Yes Gastroesophageal Reflux, Chronic Constipation, Chronic Diarrhea Musculoskeletal: Yes (NECK) Arthritis, Chronic Back Pain Endocrine: No HEENT: Yes (GLASSES) Loss of Vision: Denies Hearing Impairment: Denies Cancer: No Psychosocial: Yes Depression Integumentary: No Blood Disorders: Yes (HX ANEMIA) Adverse Reaction/Blood Tranf: No (N/A) Family Medical History Diabetes mellitus 19 MOTHER FHx: COPD (chronic obstructive pulmonary disease) 19 MOTHER FHx: skin cancer 19 MOTHER Guillain-Snowflake syndrome G8 BROTHER Kidney disease 19 MOTHER Liver failure 19 MOTHER G8 BROTHER Physical Exam Vital Signs Vital Signs - First Documented 11/11/19 11:25 Temp 37.1 Pulse 100 Resp 16 B/P (MAP) 133/87 (102) Pulse Ox 98 O2 Delivery Room Air Capillary Refill : Less Than 3 Seconds Height/Weight/BMI Height: '" Weight: lbs. oz. kg; 36.00 BMI Method: General Appearance: WD/WN, no apparent distress HEENT: PERRL/EOMI Respiratory: chest non-tender, lungs clear, normal breath sounds, no respiratory distress, no accessory muscle use Cardiovascular: regular rate, rhythm Gastrointestinal: normal bowel sounds (Slightly hyperactive), soft, tenderness (Mild tenderness around surgical sites) Rectal: normal exam, normal rectal tone, heme negative stool Extremities: normal range of motion Neurologic/Psychiatric: alert, normal mood/affect, oriented x 3 Progress/Results/Core Measures Results/Orders My Orders Orders - PING RUDOLPH MD Fecal Occult Bedside (11/11/19 11:43) Vital Signs/I&O 11/11/19 11:25 Temp 37.1 Pulse 100 Resp 16 B/P (MAP) 133/87 (102) Pulse Ox 98 O2 Delivery Room Air Blood Pressure Mean: 102 Fecal Occult: Negative Progress Progress Note : Time: 11:47 Progress Note Patient seen and examined, 49-year-old female who presents to the emergency room with concern for black stool. Patient states that she has not had a bowel movement since her gastric sleeve surgery on November 01. She has been taken Flintstones vitamins with iron since her surgery 1 twice daily. Patient noted some significantly black stool around 7:00 this morning. Fecal occult bedside testing was negative for blood. Patient's wound was evaluated, nontender nonerythematous, scant amount of drainage underneath the tissue adhesive bandage. Patient advised to follow-up with her surgeon on Wednesday and return for any worsening symptoms she verbalized understanding is comfortable with plan of care Departure Impression Primary Impression: Wound drainage Additional Impression: Stool color black Disposition: 01 HOME, SELF-CARE Condition: Stable Departure-Patient Inst. Decision time for Depature: 11:47 Referrals: MIGUEL GONZALEZ DO (PCP) Primary Care Physician GIANNI WELCH MD Patient Instructions: Negative Pressure Wound Therapy Add. Discharge Instructions: Continue to take your medications as prescribed. Follow-up with Dr. WELCH as scheduled on November 16. If you note that the surgical wound becomes more red, has more drainage, becomes more tender or painful please return to the emergency room for reevaluation. You should also call Dr. WELCH's office on Wednesday for a follow-up regarding your wound care. All discharge instructions reviewed with patient and/or family. Voiced understanding. PING RUDOLPH MD Nov 11, 2019 11:49
== END 2019-11-11 11:51 | disposition home or self-care (01) ==
LOC: EDUNIT# 11:23 → ER 11:24
DX: T81.89XA Other complications of procedures, not elsewhere classified, initial encounter (principal); K92.1 Melena; K21.9 Gastro-esophageal reflux disease without esophagitis; F32.9 Major depressive disorder, single episode, unspecified; G89.29 Other chronic pain; M54.9 Dorsalgia, unspecified; Z80.8 Family history of malignant neoplasm of other organs or systems; Z83.3 Family history of diabetes mellitus; Z88.7 Allergy status to serum and vaccine; Z88.1 Allergy status to other antibiotic agents; Z88.8 Allergy status to other drugs, medicaments and biological substances; Z79.891 Long term (current) use of opiate analgesic
CPT/HCPCS: 82274

== ENCOUNTER 2019-12-06 00:40 | Emergency (ER) | payer BC ==
[~2019-12-06] VITALS: Ht 157.5 cm; Wt 88.5 kg
[2019-12-06] MEDS ORDERED: FAMOTIDINE 20MG/2ML IV (PEPCID) IVP ONE (01:15)
[2019-12-06] MEDS ORDERED: ONDANSETRON 4 MG/2 ML (SDV) Z0FRAN IVP ONE (01:15)
[2019-12-06 01:18] LABS: BILIRUBIN,URINE NEGATIVE (NEGATIVE); CLARITY,URINE CLOUDY; COLOR,URINE YELLOW; GLUCOSE, URINE (UA) NEGATIVE (NEGATIVE); KETONES,URINE 3+ (NEGATIVE); LEUKOCYTE ESTERASE ,URINE NEGATIVE (NEGATIVE); NITRITE,URINE NEGATIVE (NEGATIVE); PH,URINE 5.5 (5-9); PROTEIN,URINE NEGATIVE (NEGATIVE)
--- NOTE | 2019-12-06 01:27 | ED Abdominal Pain ---
General Chief Complaint: Abdominal/GI Problems Stated Complaint: NAUSEA,BACK & ABD PAIN,GASTRIC SLEEVE 11-02-19 Nursing Triage Note: Pt reports abdominal pain started at approx 2200 last night, states that she thought she needed to have BM, with no success, then went to bed. Pain became too much at 0000, came to ER. Pt does not know when last BM was, and had gastric sleeve surgery on 11/02/19 Sepsis Screen: No Definite Risk Source of Information: Patient Exam Limitations: No Limitations History of Present Illness Date Seen by Provider: Dec 06, 2019 Time Seen by Provider: 00:52 Initial Comments This 49-year-old woman presents to the emergency room with severe left sided abdominal pain since around 22:00 last night. Pain started gradual but quickly escalated. She has associated nausea and vomiting. She does not know when her last bowel movement was. She had a gastric sleeve surgery performed about 5 weeks ago. She denies any fever. She denies any changes to her urine. Allergies and Home Medications Allergies Coded Allergies: Tetanus Vaccines and Toxoid (Verified Allergy, Severe, SEVERE SWELLING AT INJECTION SITE, 11/02/19) cyclobenzaprine (Verified Allergy, Severe, ANAPHYLAXIS , 11/02/19) erythromycin base (Verified Allergy, Severe, CHEST PAIN, 11/02/19) Home Medications Bupropion HCl 150 Mg Tablet.er, 150 MG PO BID, (Reported) Cephalexin 500 Mg Capsule, 500 MG PO TID Prescribed by: CLARY ROMAN on 12/06/19414 Cetirizine HCl 10 Mg Tablet, 10 MG PO DAILY, (Reported) Hydrocodone/Acetaminophen 1 Each Tablet, 1 EACH PO Q4H Prescribed by: GIANNI FREEDMAN on 11/02/19 1257 Hydrocodone/Acetaminophen 1 Each Tablet, 1 EACH PO Q4H PRN for PAIN-BREAKTHROUGH Prescribed by: CLARY ROMAN on 12/06/19 041 Ondansetron 4 Mg Tab.rapdis, 4 MG SL Q4H PRN for NAUSEA/VOMITING Prescribed by: CLARY ROMAN on 12/06/19414 Ondansetron HCl 4 Mg Tab, 4 MG PO Q4H Prescribed by: GIANNI FREEDMAN on 11/02/19 1257 Pantoprazole Sodium 40 Mg Tablet.dr, 40 MG PO DAILY Prescribed by: GIANNI FREEDMAN on 11/02/19 1257 Pedi Mv No.79/Ferrous Fumarate 18 Mg Tab.chew, 18 MG PO DAILY, (Reported) [Phenergan] , 25 MG EVERY 4-6 HOURS DIRECTED ON RX Prescribed by: MARI SEGURA on 11/04/19 1000 Patient Home Medication List Home Medication List Reviewed: Yes Review of Systems Review of Systems Constitutional: no symptoms reported EENTM: No Symptoms Reported Respiratory: No Symptoms Reported Cardiovascular: No Symptoms Reported Gastrointestinal: See HPI Genitourinary: No Symptoms Reported Musculoskeletal: no symptoms reported Skin: no symptoms reported Psychiatric/Neurological: No Symptoms Reported Endocrine: No Symptoms Reported Hematologic/Lymphatic: No Symptoms Reported Past Mbkajce-Qhwsbn-Pnntkg Hx Past Med/Social Hx: Reviewed Nursing Past Med/Soc Hx Patient Social History 2nd Hand Smoke Exposure: No Recent Foreign Travel: No Contact w/Someone Who Travel: No Recent Infectious Disease Expo: No Recent Hopitalizations: No Physical Abuse: No Sexual Abuse: No Mistreated: No Fear: No Seasonal Allergies Seasonal Allergies: Yes Past Medical History Surgeries: Yes (CX X3) Abdominal (Gastric sleeve), Section, Tonsillectomy Respiratory: Yes Sleep Apnea Currently Using CPAP: Yes Currently Using BIPAP: No Cardiac: No Neurological: Yes Headaches /Migraines : No Female Reproductive Disorders: Menstrual Problems Sexually Transmitted Disease: No HIV/AIDS: No Genitourinary: No Gastrointestinal: Yes Gastroesophageal Reflux, Chronic Constipation, Chronic Diarrhea Musculoskeletal: Yes (NECK) Arthritis, Chronic Back Pain Endocrine: No HEENT: Yes (GLASSES) Loss of Vision: Denies Hearing Impairment: Denies Cancer: No Psychosocial: Yes Depression Integumentary: No Blood Disorders: Yes (HX ANEMIA) Adverse Reaction/Blood Tranf: No (N/A) Family Medical History Diabetes mellitus 19 MOTHER FHx: COPD (chronic obstructive pulmonary disease) 19 MOTHER FHx: skin cancer 19 MOTHER Guillain-[place] syndrome G8 BROTHER Kidney disease 19 MOTHER Liver failure 19 MOTHER G8 BROTHER Physical Exam Vital Signs Vital Signs - First Documented 12/06/19 01:15 Temp 35.6 Pulse 93 Resp 28 B/P (MAP) 125/90 (102) Pulse Ox 100 O2 Delivery Room Air Capillary Refill : Less Than 3 Seconds Height/Weight/BMI Height: '" Weight: lbs. oz. kg; 35.00 BMI Method: General Appearance: WD/WN, moderate distress HEENT: PERRL/EOMI, normal ENT inspection Neck: normal inspection Respiratory: lungs clear, normal breath sounds, no respiratory distress, no accessory muscle use Cardiovascular: regular rate, rhythm, no edema, no murmur Gastrointestinal: normal bowel sounds, soft, tenderness (Throughout the left abdomen) Extremities: normal inspection, no pedal edema Neurologic/Psychiatric: opener tender II-XII nml as tested, no motor/sensory deficits, alert, normal mood/affect, oriented x 3 Skin: normal color, warm/dry Progress/Results/Core Measures Results/Orders Lab Results Laboratory Tests Test 12/06/19 01:11 12/06/19 01:20 Range/Units Urine Color YELLOW Urine Clarity CLOUDY Urine pH 5.5 5-9 Urine Specific [place] 1.025 H 1.016-1.022 Urine Protein NEGATIVE NEGATIVE Urine Glucose (UA) NEGATIVE NEGATIVE Urine Ketones 3+ H NEGATIVE Urine Nitrite NEGATIVE NEGATIVE Urine Bilirubin NEGATIVE NEGATIVE Urine Urobilinogen 0.2 < = 1.0 MG/DL Urine Leukocyte Esterase NEGATIVE NEGATIVE Urine RBC (Auto) 3+ H NEGATIVE Urine RBC 25-50 H /HPF Urine WBC 0-2 /HPF Urine Squamous Epithelial Cells 10-25 H /HPF Urine Crystals NONE /LPF Urine Bacteria TRACE /HPF Urine Casts NONE /LPF Urine Mucus SMALL H /LPF Urine Yeast FEW H /HPF Urine Culture Indicated YES White Blood Count 6.5 4.3-11.0 10^3/uL Red Blood Count 4.54 3.80-5.11 10^6/uL Hemoglobin 13.6 11.5-16.0 g/dL Hematocrit 41 35-52 % Mean Corpuscular Volume 89 80-99 fL Mean Corpuscular Hemoglobin 30 25-34 pg Mean Corpuscular Hemoglobin Concent 34 32-36 g/dL Red Cell Distribution Width 14.1 10.0-14.5 % Platelet Count 203 130-400 10^3/uL Mean Platelet Volume 11.8 9.0-12.2 fL Immature Granulocyte % (Auto) 0 % Neutrophils (%) (Auto) 43 42-75 % Lymphocytes (%) (Auto) 47 H 12-44 % Monocytes (%) (Auto) 8 0-12 % Eosinophils (%) (Auto) 1 0-10 % Basophils (%) (Auto) 1 0-10 % Neutrophils # (Auto) 2.8 1.8-7.8 10^3/uL Lymphocytes # (Auto) 3.0 1.0-4.0 10^3/uL Monocytes # (Auto) 0.5 0.0-1.0 10^3/uL Eosinophils # (Auto) 0.1 0.0-0.3 10^3/uL Basophils # (Auto) 0.0 0.0-0.1 10^3/uL Immature Granulocyte # (Auto) 0.0 0.0-0.1 10^3/uL Sodium Level 141 135-145 MMOL/L Potassium Level 3.1 L 3.6-5.0 MMOL/L Chloride Level 103 98-107 MMOL/L Carbon Dioxide Level 17 L 21-32 MMOL/L Anion Gap 21 H 5-14 MMOL/L Blood Urea Nitrogen 16 7-18 MG/DL Creatinine 0.84 0.60-1.30 MG/DL Estimat Glomerular Filtration Rate > 60 BUN/Creatinine Ratio 19 Glucose Level 127 H 70-105 MG/DL Calcium Level 9.4 8.5-10.1 MG/DL Corrected Calcium 9.4 8.5-10.1 MG/DL Magnesium Level 1.7 1.6-2.4 MG/DL Total Bilirubin 0.7 0.1-1.0 MG/DL Aspartate Amino Transf (AST/SGOT) 25 5-34 U/L Alanine Aminotransferase (ALT/SGPT) 40 0-55 U/L Alkaline Phosphatase 97 40-136 U/L Total Protein 6.8 6.4-8.2 GM/DL Albumin 4.0 3.2-4.5 GM/DL Lipase 125 H 8-78 U/L Serum Test, Qualitative NEGATIVE NEGATIVE My Orders Orders - CLARY HOLDER MD Cbc With Automated Diff (12/06/19 00:52) Comprehensive Metabolic Panel (12/06/19 00:52) Lipase (12/06/19 00:52) Magnesium (12/06/19 00:52) Ua Culture If Indicated (12/06/19 00:52) Ed Iv/Invasive Line Start (12/06/19 00:52) Ondansetron Injection (Zofran Injectio (12/06/19 01:15) Famotidine Injection (Pepcid Injection) (12/06/19 01:15) Fentanyl Injection (Sublimaze Injection (12/06/19 01:30) Hcg,Qualitative Serum (12/06/19 01:27) Urine Culture (12/06/19 01:11) Ct Abd/Pelvis Wo(Kidney Stone) (12/06/19 02:01) Morphine Injection (Morphine Injection (12/06/19 02:02) Ketorolac Injection (Toradol Injection) (12/06/19 03:15) Lactated Ringers (Lr 1000 Ml Iv Solution (12/06/19 03:07) Medications Given in ED Current Medications Medications Dose Ordered Sig/Ibrahima Route Start Time Stop Time Status Last Admin Dose Admin Famotidine 20 mg ONCE ONCE IVP 12/06/19 01:15 12/06/19 01:16 DC 12/06/19 01:22 20 MG Fentanyl Citrate 75 mcg ONCE ONCE IVP 12/06/19 01:30 12/06/19 01:31 DC 12/06/19 02:10 75 MCG Ketorolac Tromethamine 30 mg ONCE ONCE IVP 12/06/19 03:15 12/06/19 03:16 DC 12/06/19 03:23 30 MG Lactated Ringer's 1,000 ml @ 0 mls/hr Q0M ONCE IV 12/06/19 03:07 12/06/19 03:09 DC 12/06/19 03:22 1,000 MLS/HR Ondansetron HCl 8 mg ONCE ONCE IVP 12/06/19 01:15 12/06/19 01:16 DC 12/06/19 01:22 8 MG Vital Signs/I&O 12/06/19 12/06/19 01:15 04:45 Temp 35.6 35.6 Pulse 93 93 Resp 28 28 B/P (MAP) 125/90 (102) 125/90 (102) Pulse Ox 100 100 O2 Delivery Room Air Blood Pressure Mean: 102 Progress Progress Note : Progress Note Pain was treated with fentanyl. Zofran and Pepcid were given for GI symptoms. Urinalysis revealed hematuria. CT stone search was obtained and revealed a left distal ureteral stone. Toradol and IV fluids were administered. See discharge instructions. Diagnostic Imaging Diagonstic Imaging: CT Plain Films/CT/US/NM/MRI: abdomen, pelvis Comments CT abdomen and pelvis viewed by me and stat rad report reviewed. There is a left distal ureteral stone with obstruction. Departure Impression Primary Impression: Left ureteral stone Additional Impression: Nausea and vomiting Qualified Codes: R11.2 - Nausea with vomiting, unspecified Disposition: 01 HOME, SELF-CARE Condition: Improved Departure-Patient Inst. Decision time for Depature: 04:00 Referrals: MIGUEL GONZALEZ DO (PCP/Family) Primary Care Physician Patient Instructions: Kidney Stone Diet, Kidney Stones in Adults Add. Discharge Instructions: Drink plenty of clear liquids. Take ibuprofen up to 600 mg every 6 hours as needed for pain. Add hydrocodone for pain not controlled by ibuprofen. Take Zofran (ondansetron) as prescribed for nausea and vomiting. Strain your urine and bring any stones collected to your follow-up appointment. Follow-up with your primary care provider or a urologist of your choice as soon as possible. Dr. Gamez's contact information is listed below. Return to the emergency room if you have symptoms not improving or if you have worsening symptoms. All discharge instructions reviewed with patient and/or family. Voiced understanding. Scripts Cephalexin (Keflex) 500 Mg Capsule 500 MG PO TID, #20 CAP Prov: CLARY HOLDER MD 12/06/19 Ondansetron (Ondansetron Odt) 4 Mg Tab.rapdis 4 MG SL Q4H PRN for NAUSEA/VOMITING, #10 TAB Prov: CLARY HOLDER MD 12/06/19 Hydrocodone/Acetaminophen (Hydrocodone-Acetamin 5-325 mg) 1 Each Tablet 1 EACH PO Q4H PRN for PAIN-BREAKTHROUGH, #10 TAB Prov: CLARY HOLDER MD 12/06/19 CLARY HOLDER MD Dec 06, 2019 01:27
[2019-12-06 01:30] LABS: BASOPHILS % (AUTO) 1 % (0-10); EOSINOPHILS # (AUTO) 0.1 10^3/uL (0.0-0.3); EOSINOPHILS % (AUTO) 1 % (0-10); HEMATOCRIT 41 % (35-52); HEMOGLOBIN 13.6 g/dL (11.5-16.0); LYMPHOCYTES % (AUTO) 47 % (12-44); MEAN CORPUSCULAR HEMOGLOBIN 30 pg (25-34); MEAN CORPUSCULAR HGB CONC 34 g/dL (32-36); MEAN CORPUSCULAR VOLUME 89 fL (80-99); MEAN PLATELET VOLUME 11.8 fL (9.0-12.2); MONOCYTES # (AUTO) 0.5 10^3/uL (0.0-1.0); MONOCYTES % (AUTO) 8 % (0-12); NEUTROPHILS # (AUTO) 2.8 10^3/uL (1.8-7.8); NEUTROPHILS % (AUTO) 43 % (42-75); PLATELET COUNT 203 10^3/uL (130-400); WHITE BLOOD COUNT 6.5 10^3/uL (4.3-11.0)
[2019-12-06] MEDS ORDERED: fentaNYL INJECTION 100 MCG/2 ML AMP IVP ONE (01:30)
[2019-12-06 01:31] LABS: BACTERIA,URINE TRACE /HPF; RBC,URINE 25-50 /HPF; WBC,URINE 0-2 /HPF; YEAST,URINE FEW /HPF
[2019-12-06 01:44] LABS: CHLORIDE 103 MMOL/L (98-107); POTASSIUM 3.1 MMOL/L (3.6-5.0)
[2019-12-06 01:45] LABS: SODIUM 141 MMOL/L (135-145)
[2019-12-06 01:46] LABS: CALCIUM 9.4 MG/DL (8.5-10.1)
[2019-12-06 01:47] LABS: GLUCOSE 127 MG/DL (70-105); TOTAL PROTEIN 6.8 GM/DL (6.4-8.2)
[2019-12-06 01:48] LABS: CARBON DIOXIDE 17 MMOL/L (21-32)
[2019-12-06 01:49] LABS: BILIRUBIN,TOTAL 0.7 MG/DL (0.1-1.0)
[2019-12-06 01:50] LABS: ALKALINE PHOSPHATASE 97 U/L (40-136); CREATININE SERUM 0.84 MG/DL (0.60-1.30); GFR ESTIMATED > 60
[2019-12-06 01:52] LABS: BUN/CREATININE RATIO 19
[2019-12-06 01:53] LABS: ALANINE AMINOTRANSFERASE 40 U/L (0-55)
[2019-12-06 01:56] LABS: MAGNESIUM 1.7 MG/DL (1.6-2.4)
[2019-12-06 01:57] LABS: LIPASE 125 U/L (8-78)
[2019-12-06] MEDS ORDERED: morphine INJ 10 MG/ML 1ML (SYR OR VIAL) IVP STA (02:02)
--- NOTE | 2019-12-06 03:06 | NUR ---
Pt reports her pain has resolved at this time.
[2019-12-06] MEDS ORDERED: LACTATED RINGERS 1,000 ML IV ONE (03:07)
[2019-12-06] MEDS ORDERED: KETOROLAC 30 MG/ML VIAL IVP ONE (03:15)
[2019-12-06] MEDS ORDERED: CEPH-507 PO (04:15)
[2019-12-06] MEDS ORDERED: ONDA4TAB11 SL (04:15)
[2019-12-06] MEDS ORDERED: ACHD5005 PO (04:15)
[2019-12-06 04:45] VITALS: BP 125/90
--- NOTE | 2019-12-06 04:47 | NUR ---
D/C education provided with verbal understanding noted; strainer and specimen cup provided. Pt ambulated from ER without incident.
--- NOTE | 2019-12-06 07:52 | Diagnostic Imaging Report ---
PROCEDURE: CT urinary tract, rule out kidney stone. TECHNIQUE: Multiple contiguous axial images were obtained through the abdomen and pelvis without the use of intravenous contrast. Auto Exposure Controls were utilized during the CT exam to meet ALARA standards for radiation dose reduction. INDICATION: Flank pain. FINDINGS: There is mild perinephric edema on the left. Mild hydronephrosis. Left ureter is mildly dilated. There is a 3 mm stone in the distal left ureter in the mid pelvis measuring approximately 3 mm. Right kidney and ureter appear normal. Bladder is normal. No pelvic masses. Bowel gas pattern appears normal throughout. The liver is normal. Gallbladder is absent. Bile ducts are not dilated. Pancreas and spleen are normal. No evidence for aortic aneurysm. Surgical changes noted of the stomach. IMPRESSION: 1. Mild hydronephrosis with perinephric fluid on the left. This is secondary to a 3 mm calculus in the distal left ureter in the mid pelvis. These findings are concordant with the preliminary report. Dictated by: Dictated on workstation # [id number]
== END 2019-12-06 04:41 | disposition home or self-care (01) ==
LOC: EDUNIT# 00:40 → ER 00:42
DX: N13.2 Hydronephrosis with renal and ureteral calculous obstruction (principal); R11.2 Nausea with vomiting, unspecified; K21.9 Gastro-esophageal reflux disease without esophagitis; F32.9 Major depressive disorder, single episode, unspecified; G89.29 Other chronic pain; M54.9 Dorsalgia, unspecified; Z82.49 Family history of ischemic heart disease and other diseases of the circulatory system; Z83.3 Family history of diabetes mellitus; Z80.8 Family history of malignant neoplasm of other organs or systems; Z88.7 Allergy status to serum and vaccine; Z88.1 Allergy status to other antibiotic agents; Z88.8 Allergy status to other drugs, medicaments and biological substances; Z79.891 Long term (current) use of opiate analgesic
CPT/HCPCS: 36415; 74176; 80053; 81000; 83690; 83735; 84703; 85025; 87088